=== PATIENT | female | born 1980 | race Caucasian/White ===

== ENCOUNTER 2017-03-14 23:30 | Emergency (ER) | payer SELFPAY, MEDICAID | END 2017-03-15 03:57 | disposition left against medical advice (07) | LOC: FTE 23:30 | DX: Z53.21 Procedure and treatment not carried out due to patient leaving prior to being seen by health care provider (principal) ==

== ENCOUNTER 2017-09-04 21:50 | Emergency (ER) | payer MEDICAID | END 2017-09-05 03:09 | disposition home or self-care (01) | LOC: FTE 21:50 | DX: N90.89 Other specified noninflammatory disorders of vulva and perineum (principal); L73.9 Follicular disorder, unspecified; J45.909 Unspecified asthma, uncomplicated | CPT/HCPCS: 99283 ==